=== PATIENT | female | born 1965 | race Caucasian/White ===

== ENCOUNTER 2019-12-04 15:32 | Inpatient (IN) | payer MEDICARE, MEDICAID, SELFPAY ==
--- NOTE | ~2019-12-04 | US_ITS ---
EXAMINATION: US right upper quadrant EXAM DATE: 12/04/2019 16:35 INDICATION: Right upper quadrant pain. TECHNIQUE: Multiple grayscale and Doppler images of the abdomen right upper quadrant were obtained (b y a technologist who performed the scan) and subsequently reviewed. Correlation is made to CT abdomen pelvis 10/29/2019. FINDINGS: The pancreatic head and body are normal in appearance. The pancreatic tail is not visualized. The l iver has normal echogenicity and contour. There are no focal liver lesions identified. There is no evidence of intrahepatic biliary duct dilation. Portal venous flow was seen in the hepatopedal, nor mal direction and has normal Doppler waveform. No right-sided hydronephrosis. Common bile duct measures 5 mm, which is normal. The gallbladder wall is normal in thickness, with on ly mild amount of distention. No sonographic evidence of pericholecystic fluid. There is a gallston e identified and some layering gallbladder debris. Technologist reports tenderness overlying the gal lbladder. IMPRESSION: Cholelithiasis. No gallbladder wall thickening, pericholecystic fluid or biliary dilation , but Sarah sign demonstrated. If biliary dysfunction suspected, consider follow-up HIDA scan. Reviewed, dictated and finalized at location A. NTIFIC SOFTWARE ENGINEER IMPRESSION: Cholelithiasis. No gallbladder wall thickening, pericholecystic flu id or biliary dilation, but Sarah sign demonstrated. If biliary dysfunction alonzo spected, consider follow-up HIDA scan.
[2019-12-04 15:34] VITALS: BP 130/97; PULSE 102; RESP 18; TEMP 36.7; O2SAT 100
--- NOTE | 2019-12-04 15:44 | ED.ABDPAIN ---
HPI - Abdominal Pain General Chief Complaint: Abdominal Pain Stated Complaint: Abd pain Time Seen by Provider: 12/04/19 15:41 Source: patient Mode of arrival: ambulatory Limitations: no limitations History of Present Illness HPI narrative: The pt is a 54 y/o female who presents to the ED with c/o epigastric and RUQ ABD pain that began this morning. The pt was seen here on 11/29/19 and was sent home on Cipro. She had an outpatient follow up and is scheduled for a cholecystectomy on 12/11/19. She has been taking Tylenol without relief of sx and states that she only ate a piece of toast this morning. The pt also reports chills, nausea, and diarrhea. She denies vomiting in the ED bed but notes that she has been throwing up on and off for the past month. The pt has a SHx of a bilateral TKR and tubal ligation. She is not sure if she is able to wait until next week's surgery because of her pain. MD elicited complaint: abdominal pain Onset (ago): hour(s) (this morning) Location: epigastric and RUQ Associated symptoms: nausea, diarrhea and chills Related Data Home Medications Medication Instructions Recorded Confirmed lisinopril-hydrochlorothiazide 1 tablet PO DAILY 11/28/19 11/28/19 meloxicam 15 mg PO DAILY 11/28/19 11/28/19 metformin 1,000 mg PO BID 11/28/19 11/28/19 multivitamin 1 tablet PO DAILY 11/28/19 11/28/19 Allergies Allergy/AdvReac Type Severity Reaction Status Date / Time shellfish derived Allergy Intermediate Hives / Verified 11/28/19 10:12 Red Face pineapple Allergy Unknown Hives / Verified 11/28/19 10:12 Red Face Sulfa (Sulfonamide Allergy Unknown Hives Verified 11/28/19 10:12 Antibiotics) ketorolac Allergy Swelling Verified 11/28/19 10:12 strawberry Allergy Hives Verified 11/28/19 10:12 Review of Systems Review of Systems: Narrative: CONSTITUTIONAL: Reports chills. GASTROINTESTINAL: Reports epigastric and RUQ abdominal pain, nausea, and diarrhea. Denies vomiting. All systems reviewed & are unremarkable except as noted in HPI and below PMFSH Past Medical History Medical History Arthritis Diabetes DJD of shoulder History of hypertension Obesity (BMI 30-39.9) Right shoulder pain Rotator cuff tendonitis Seasonal allergies Surgical History Surgical History H/O arthroscopic knee surgery bilateral H/O wrist surgery lt History of total left knee replacement History of total right knee replacement Family History Family History Father No problems noted. Mother No problems noted. Social History Social History Smoking status: Former smoker Smoking end date: 10/30/02 Alcohol intake: never Exam Narrative: Exam Narrative: GENERAL: Well-appearing, well-nourished, and in no acute distress. HEAD: Normocephalic, atraumatic. EYES: PERRLA and EOMI. ENT: Nares clear, no rhinorrhea or epistaxis. Mucous membranes moist. NECK: Supple. CHEST: Clear to auscultation. No respiratory distress. HEART: Regular rate and rhythm. No murmur heard. Normal peripheral pulses. ABDOMEN: Soft, epigastric and RUQ tenderness, nondistended, normal active bowel sounds. EXTREMITIES: Normal range of motion. No edema. SKIN: Warm, dry, no rash. NEURO: No focal deficits. Alert and oriented X3. Course Course Emergency Course: Patient presented to the emergency department for evaluation of continued abdominal pain. Patient has a history of cholecystitis, scheduled for outpatient cholecystectomy next week. Patient is having pain that is currently not attributed to eating, states that she has been trying to adhere to a low-fat diet. The time of assessment, patient has epigastric and right upper quadrant pain without guarding. Nonrigid. IV access obtained and labs are
[2019-12-04 15:46] LABS: Basophils Absolute Auto 0.1 K/mm3 (0.0-0.1); Basophils Percent Auto 0.5 % (0.2-1.2); Eosinophils Absolute Auto 0.4 K/mm3 (0-0.3); Eosinophils Percent Auto 3.4 % (0-4.4); Immature Granulocyte Absolute 0.04 K/mm3 (0.00-0.031); Immature Granulocyte Percent A 0.4 % (0-0.5); Lymphocytes Absolute Auto 2.97 K/mm3 (0.9-3.2); Mean Corpuscular HGB Conc 34.1 g/dl (32-36); Mean Corpuscular Hemoglobin 31.4 pg (26-34); Mean Corpuscular Volume 92.1 fl (80-100); Mean Platelet Volume 9.6 fl (7.4-10.4); Monocytes Absolute Auto 1.2 K/mm3 (0.1-0.6); Monocytes Percent Auto 10.7 % (2.6-8.5); Neutrophils Absolute Auto 6.7 K/mm3 (1.3-6.7); Platelet Count Result 270 k/mm3 (150-375); Red Blood Count 4.78 M/mm3 (4.2-5.4); Red Cell Distribution Width 13.4 % (11.5-14.5); White Blood Count 11.4 K/mm3 (4.5-10.0)
[2019-12-04 15:58] LABS: Alanine Aminotransferase 19 U/L (4-35); Albumin Level 4.6 g/dL (3.5-5.1); Alkaline Phosphatase 91 U/L (38-126); Aspartate Amino Transferase 21 U/L (14-36); Bilirubin,Total 0.4 mg/dL (0.2-1.3); Blood Urea Nitrogen 15 mg/dL (7-17); Calcium 9.9 mg/dL (8.4-10.2); Carbon Dioxide 22 mmol/L (22-30); Chloride 99 mmol/L (98-107); Estimated CRCL calculation 103 ml/min; Estimated Glomerular Filt Rate > 60; Glucose 91 mg/dL (65-105); Lipase 1027 U/L (23-300); Potassium 3.8 mmol/L (3.4-5.0); Sodium 134 mmol/L (137-145)
[2019-12-04] MEDS: ONDANSETRON INJ 4 MG/2 ML VIAL IV PUSH (17:03)
[2019-12-04] MEDS: MORPHINE SULFATE 4 MG/ML INJ IV PUSH ×2 (17:03→21:31)
[2019-12-04] MEDS: SODIUM CHLORIDE 0.9% IV 1,000 ML 999 ML IV CONT (17:03)
[2019-12-04 17:06] VITALS: BP 148/93; PULSE 92; RESP 18; O2SAT 96
[2019-12-04 17:08] LABS: Add Urine Microscopic? YES; Appearance Urine Clear (Clear); Bilirubin Urine Negative (Negative); Blood Urine 2+ (Negative); Color Urine Yellow (Yellow); Glucose Urine UA Negative (Negative); Ketones Urine Trace mg/dL (Negative); Leukocyte Esterase Ur 1+ LEU/UL (Negative); Mucus Urine Rare /lpf; Nitrate Urine Negative (Negative); Protein Urine Negative (Negative); Specific Grav Ur 1.018 (1.001-1.035); Squamous Epithelial Cell Urine Many /hpf (Few); Urobilinogen Urine Negative mg/dL (<2.0)
[2019-12-04 18:30] VITALS: BP 139/74; PULSE 87; RESP 18; TEMP 36.7; O2SAT 100; BMI 39.6
--- NOTE | 2019-12-04 18:35 | ADMGEN ---
This patient, Yue Valdovinos, was admitted to 2 Medical Room 242-. Patient/family oriented to hospital policies and general routines including ID bracelet, bed and alarms, visiting hours, pain management, procedures, bathroom and other care routines, personal items, smoking policy, room service/diet, and visiting hours. Valuables list has been completed. Information on how to activate the Rapid Response Team has been discussed. Patient/Family are encouraged to report perceived risks to care and to ask questions if they do not understand what they are told or what they should do.
[2019-12-04] MEDS: LACTATED RINGERS 1,000 ML 125 ML IV CONT (18:37)
[2019-12-04 21:51] VITALS: BP 94/57; PULSE 80; RESP 16; TEMP 36.1; O2SAT 99
--- NOTE | 2019-12-04 23:20 | PM.IMHP ---
H&P: HPI History of Present Illness Chief complaint: Pancreatitis Narrative: Yue Valdovinos is a 54 year old female who has a history of cholelithiasis. The patient stated she was diagnosed with gallstones back in September last year. Patient recently got into his surgeon and has her surgery scheduled for 12/11/2019. The patient stated that she has been on a bland diet and hardly eating anything. She stated that she was having some gallbladder attacks but they would last for short period time and then go away. However her pain did not go away today. She has been eating toast and oatmeal. She took Tylenol without relief of epigastric discomfort. She feels bloated and has been vomiting. She has been throwing up on and off for the last month.Lipase was noted to be 1027. Gallbladder ultrasound shows cholelithiasis. Date of service 12/04/2019. For the discomfort and Zofran is started on IV fluids. Review of Systems Review of Systems: Narrative: She complains of having headache and feeling hungry. All systems reviewed & are unremarkable except as noted in HPI and below Constitutional: Constitutional: Reports as per HPI and Reports no additional constitutional complaints Eyes: Eyes: Reports as per HPI and Reports no additional eye complaints ENT: Reports system reviewed and no additional complaints, except as documented and Reports Normal hearing present Cardiovascular: Cardiovascular: Reports no additional cardiovascular complaints Respiratory: Respiratory: Reports no additional respiratory complaints and Reports no additional respiratory complaints Gastrointestinal: Gastrointestinal: Reports as per HPI, Reports no additional gastrointestinal complaints, Reports bloating, Reports GI cramping, Reports dyspepsia and Reports heartburn Comments: Epigastric discomfort. Bloating cramping nausea vomiting Musculoskeletal: Musculoskeletal: Reports no additional musculoskeletal complaints Integumentary/Breasts: Skin/Breast: Reports system reviewed and no additional complaints, except as docu and Reports as per HPI Neurologic: Reports system reviewed and no additional complaints, except as documented, Reports as per HPI and Reports Normal hearing present Psychiatric: Psychiatric: Reports no additional psychiatric complaints and Reports as per HPI Endocrine: Endocrine: Reports no additional endocrine complaints Hematologic/Lymphatic: Hematologic/Lymphatic: Reports no additional hematologic/lymphatic complaints Allergic/Immunologic: Allergic/Immunologic: Reports no additional allergic/immunologic complaints [facility] Past Medical History Medical History (Updated 12/04/19 @ 17:22 by Betty Valles MD) Arthritis Diabetes DJD of shoulder History of hypertension Obesity (BMI 30-39.9) Right shoulder pain Rotator cuff tendonitis Seasonal allergies Surgical History Surgical History (Updated 12/04/19 @ 23:26 by Elizabeth Sepulveda NP) H/O arthroscopic knee surgery bilateral H/O wrist surgery lt at least 13 surgeries that left wrist and is now fused History of total left knee replacement History of total right knee replacement Family History Family History (Updated 12/04/19 @ 23:26 by Elizabeth Sepulveda NP) Father Alcohol abuse Alcoholic Cerebrovascular accident Mother Depression Social History Social History (Updated 12/04/19 @ 23:27 by Elizabeth Sepulveda NP) Social History: She is and has 3 children. She is now on disability. 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 She denies any alcohol or illicit drugs. Patient quit smoking 2009 but then started back up in 2018. Then she quit but now she occasionally smokes a cigarette. She is disabled. She is a full code. No POA Smoking status: Former smoker Smoking end date: 10/30/02 Alcohol intake: never Substance use: never Living arrangements: alone Gender identity (if verbalized by the patient): Female Spiritual care concerns: No Agre
[2019-12-05] MEDS: LACTATED RINGERS 1,000 ML 125 ML IV CONT ×2 (05:58→14:57)
[2019-12-05] MEDS: MORPHINE SULFATE 4 MG/ML INJ IV PUSH (06:03)
[2019-12-05 06:20] VITALS: BP 139/59; PULSE 80; RESP 16; TEMP 35.9; O2SAT 97
[2019-12-05 07:53] LABS: Alanine Aminotransferase 81 U/L (4-35); Albumin Level 3.7 g/dL (3.5-5.1); Alkaline Phosphatase 68 U/L (38-126); Aspartate Amino Transferase 100 U/L (14-36); Bilirubin,Total 0.9 mg/dL (0.2-1.3); Blood Urea Nitrogen 13 mg/dL (7-17); Calcium 8.9 mg/dL (8.4-10.2); Carbon Dioxide 23 mmol/L (22-30); Chloride 106 mmol/L (98-107); Cholesterol 143 mg/dL (0-200); Estimated CRCL calculation 121 ml/min; Estimated Glomerular Filt Rate > 60; Glucose 89 mg/dL (65-105); HDL Direct 35 mg/dL; Lipase 56 U/L (23-300); Magnesium 1.9 mg/dL (1.6-2.3); Potassium 4.2 mmol/L (3.4-5.0); Sodium 138 mmol/L (137-145); Triglycerides 155 mg/dL (<150)
[2019-12-05 08:04] LABS: LDL Cholesterol Direct 94 mg/dL
--- NOTE | 2019-12-05 09:54 | PM.CNGS ---
Assessment and Plan Assessment and plan (1) Acute pancreatitis: Qualifiers: Acute pancreatitis complication: unspecified Pancreatitis type: biliary Qualified Code(s): K85.10 - Biliary acute pancreatitis without necrosis or infection Code(s): K85.90 - Acute pancreatitis without necrosis or infection, unspecified Status: Acute Assessment and Plan: Most likely biliary cause for the acute pancreatitis. Continue IV fluids, analgesics, and antiemetics as needed. The patient seems to have clinically improved significantly already this morning. Her lipase is also down to normal this morning. Will start her on a clear liquid diet. (2) Chronic cholecystitis with calculus: Code(s): K80.10 - Calculus of gallbladder with chronic cholecystitis without obstruction Status: Acute Assessment and Plan: Imaging reviewed and discussed with the patient. She has chronic cholecystitis with cholelithiasis. She now has an episode of also acute biliary pancreatitis. She was already scheduled to have an elective laparoscopic cholecystectomy, possible open, by Dr. Smith on 12/11/19. She will need to be treated for the acute pancreatitis prior to deciding on proceeding with a laparoscopic cholecystectomy, although this does not change the fact that she needs to have the surgery. The procedure has been discussed with her in detail as an outpatient. She has no further questions today. Further plan on timing of surgery will be forthcoming following Dr. Smith's evaluation and how she responds to current treatment. (3) History of hypertension: Code(s): Z86.79 - Personal history of other diseases of the circulatory system Status: Acute (4) Obesity (BMI 30-39.9): Code(s): E66.9 - Obesity, unspecified Status: Acute Additional Plan Discussed the patient's case and plan of care with Dr. Smith. History of Present Illness Consult details Consult date: 12/05/19 Reason for consult: other (Known chronic cholecystitis with cholelithiasis with acute pancreatitis) Requesting physician: Betty Valles MD Narrative: This is a 54-year-old female with a history of hypertension and known chronic cholecystitis with cholelithiasis, who presented to the emergency department yesterday with complaints of epigastric and right upper quadrant abdominal pain. The patient reports having a history of right upper quadrant abdominal pain intermittently after fatty food intake. She reports the pain is typically mild and will resolve spontaneously with time. She then had an outpatient office visit with Dr. Smith on 11/14/19 for chronic cholecystitis with cholelithiasis and surgery has been scheduled for 12/11/2019. She reports eating a bland low-fat diet following her outpatient consultation and this had improved her symptoms. She states she had been having diarrhea for months and that had improved as well. The patient states that yesterday at around 9:00 a.m. she developed an acute onset of epigastric and right upper quadrant abdominal pain. This was a different type of pain than she had felt in the past, stating that it was sharper, more intense, and was continuous. She reports also having associated nausea, but no vomiting. She had tried to take Tylenol for the pain, which did not improve her symptoms. With the pain not resolving, she decided to present to the emergency department for further evaluation. A right upper quadrant abdominal ultrasound was performed and showed cholelithiasis without any gallbladder distention, wall thickening, or pericholecystic fluid. Labs revealed white blood cell count of 11,400, lipase 1027, and LFTs normal. The patient was admitted to the hospitalist service and started on IV fluids, analgesics, and antiemetics. Our service was then consulted for surgical evaluation of the cholelithiasis with chronic cholecystitis and now acute pancreatitis. The patient is now being seen on the medical floor. She repor
[2019-12-05 14:00] VITALS: BP 133/67; PULSE 78; RESP 16; TEMP 36.2; O2SAT 98
--- NOTE | 2019-12-05 14:18 | PM.IMPN ---
Progress Note: A&P Assessment and Plan (1) Acute pancreatitis: Qualifiers: Acute pancreatitis complication: unspecified Pancreatitis type: biliary Qualified Code(s): K85.10 - Biliary acute pancreatitis without necrosis or infection Code(s): K85.90 - Acute pancreatitis without necrosis or infection, unspecified Status: Acute Assessment and Plan: Likely due to gallstones Rapid resolution Low risk approach would be cholecystectomy prior to discharge (2) Chronic cholecystitis with calculus: Code(s): K80.10 - Calculus of gallbladder with chronic cholecystitis without obstruction Status: Acute Assessment and Plan: Await cholecystectomy (3) History of hypertension: Code(s): Z86.79 - Personal history of other diseases of the circulatory system Status: Acute Assessment and Plan: monitor Subjective Date/time seen: 12/05/19 14:18 Interval history: Admitted 2/ with acute pancreatitis. Severe epigastric pain. No pain today. No n/v. No bleeding. No cp or sob. No gi/gu c/o. Review of Systems Review of Systems: All systems reviewed & are unremarkable except as noted in HPI and below Exam Narrative: Exam Narrative: HEENT: EOMI, PERRL, pharyngeal mucosa pink and intact NECK: No JVD CHEST: Clear to auscultation. Normal effort. HEART: NL S1/S2, regular, no murmur ABDOMEN: BS+, soft, nontender, no mass, no bruits EXTREMITIES: No cyanosis, edema, or clubbing NEUROLOGIC: CN intact and symmetric to inspection. MUSCULOSKELETAL: Tone and strength symmetric. PSYCH: Alert. Oriented to person, place, and time. Objective Data Vital Signs Vital Signs: Vital Signs - 24 hr 12/04/19 15:34 12/04/19 17:06 12/04/19 18:30 Temperature 98.1 F 98.1 F Pulse Rate 102 H 92 87 Respiratory Rate 18 18 18 Blood Pressure 130/97 H 148/93 H 139/74 Pulse Oximetry 100 96 100 12/04/19 21:51 12/05/19 06:20 Temperature 96.9 F L 96.7 F L Pulse Rate 80 80 Respiratory Rate 16 16 Blood Pressure 94/57 L 139/59 L Pulse Oximetry 99 97 Intake/Output Intake/Output: Intake & Output 12/02/19 12/03/19 12/04/19 12/05/19 23:59 23:59 23:59 23:59 Intake Total 1000 1100 Output Total 800 Balance 1000 300 Meds/Results Medications: Active Medications Generic Name Dose Route Start Last Admin Trade Name Gabi PRN Reason Stop Dose Admin Acetaminophen 650 mg in 65 mls @ 260 mls/hr 12/04/19 17:22 12/05/19 09:37 Ofirmev 650 Mg Ivpb IVPB 12/05/19 17:23 260 mls/hr Q6H PRN Administration Mild Pain (1-3) or Fever Lactated Ringer's 1,000 mls @ 125 mls/hr 12/04/19 17:25 12/05/19 05:58 Lr - Lactated Ringers Iv IV CONT 125 mls/hr .Q8H WILL Administration Morphine Sulfate 4 mg 12/04/19 17:22 12/05/19 06:03 Morphine Sulfate Inj IV PUSH 4 mg Q2H PRN Administration Pain Rated 7-10 Ondansetron HCl 4 mg 12/04/19 17:22 Zofran Inj IV PUSH Q4H PRN Nausea Radiology Results: ITS Impressions Upper Quadrant Ultrasound 12/04/19 16:36 IMPRESSION: Cholelithiasis. No gallbladder wall thickening, pericholecystic fluid or biliary dilation, but Sarah sign demonstrated. If biliary dysfunction suspected, consider follow-up HIDA scan. Labs Labs: Laboratory Results - last 24 hr 12/04/19 12/04/19 12/04/19 15:38 15:38 16:47 WBC 11.4 H RBC 4.78 Hgb 15.0 Hct 44.0 MCV 92.1 MCH 31.4 MCHC 34.1 RDW 13.4 Plt Count 270 MPV 9.6 Immature Gran % (Auto) 0.4 Neut % (Auto) 59.0 Lymph % (Auto) 26.0 Isabela % (Auto) 10.7 H Eos % (Auto) 3.4 Baso % (Auto) 0.5 Lymph # (Auto) 2.97 Isabela # (Auto) 1.2 H Eos # (Auto) 0.4 H Baso # (Auto) 0.1 Abs Immat Gran (auto) 0.04 H Absolute Neuts (auto) 6.7 Absolute Nucleated RBC 0.0 Nucleated RBC % 0.0 Sodium 134 L Potassium 3.8 Chloride 99 Carbon Dioxide 22 BUN 15 D Creatinine 0.80 Estim Creat Sarah
[2019-12-05 15:07] LABS: Basophils Percent Auto 0.4 % (0.2-1.2); Eosinophils Absolute Auto 0.3 K/mm3 (0-0.3); Eosinophils Percent Auto 3.9 % (0-4.4); Hematocrit 41.3 % (37.0-47.0); Hemoglobin 13.5 g/dL (12.0-15.0); Immature Granulocyte Absolute 0.01 K/mm3 (0.00-0.031); Immature Granulocyte Percent A 0.1 % (0-0.5); Lymphocytes Absolute Auto 2.16 K/mm3 (0.9-3.2); Lymphocytes Percent Auto 28.1 % (18.3-44.2); Mean Corpuscular HGB Conc 32.7 g/dl (32-36); Mean Corpuscular Hemoglobin 31.5 pg (26-34); Mean Corpuscular Volume 96.5 fl (80-100); Monocytes Absolute Auto 0.9 K/mm3 (0.1-0.6); Monocytes Percent Auto 11.3 % (2.6-8.5); Neutrophils Absolute Auto 4.3 K/mm3 (1.3-6.7); Neutrophils Percent Auto 56.2 % (45.5-73.1); Platelet Count Result 229 k/mm3 (150-375); Red Blood Count 4.28 M/mm3 (4.2-5.4); Red Cell Distribution Width 13.9 % (11.5-14.5); White Blood Count 7.7 K/mm3 (4.5-10.0)
--- NOTE | 2019-12-05 17:21 | PM.PNGS ---
Progress Note: A&P Assessment and Plan (1) Chronic cholecystitis with calculus: Code(s): K80.10 - Calculus of gallbladder with chronic cholecystitis without obstruction Status: Acute Assessment and Plan: Ultrasound surprisingly unremarkable for signs of acute cholecystitis or biliary ductal dilatation. However in the setting, it seems very likely she has a common bile duct stone that has probably passed. (2) Biliary acute pancreatitis: Code(s): K85.10 - Biliary acute pancreatitis without necrosis or infection Status: Acute Assessment and Plan: Still having epigastric pain although her lipase has decreased to the normal range. Will start clear liquids and see how she does. Continue analgesics. Subjective Subjective Date/Time Seen: 12/05/19 17:21 Patient is a 54-year-old woman who had originally come to the emergency room with right upper quadrant abdominal pain, tenderness and evidence of chronic cholecystitis. She improved with analgesics and was started on antibiotics and a low-fat diet. I saw her in the office. She has been scheduled for laparoscopic cholecystectomy to be done on December 11, 2019. However, she started having severe abdominal pain yesterday morning. Evaluation in the emergency room showed gallstones but no evidence of acute cholecystitis on ultrasound. Her serum lipase was quite elevated at over a 1000. This has improved now and is in the normal range. Her white blood cell count also decreased to normal. She still is having some epigastric abdominal pain. She is seen today in consultation regarding her abdominal pain and apparent diagnosis of biliary pancreatitis. Review of Systems Review of Systems: All systems reviewed & are unremarkable except as noted in HPI and below (HPI) Exam GI: Inspection: normal to inspection and non-distended GI Palp: Yes Soft to palpation, Yes Tenderness to palpation present (GI) (Epigastric tenderness), No Guarding due to palpation present (GI) and No Hernia present Auscultation: Hypoactive bowel sounds present Objective Data Vital Signs Vital Signs: Vital Signs - 24 hr 12/04/19 18:30 12/04/19 21:51 12/05/19 06:20 Temperature 36.7 C 36.1 C L 35.9 C L Pulse Rate 87 80 80 Respiratory Rate 18 16 16 Blood Pressure 139/74 94/57 L 139/59 L Pulse Oximetry 100 99 97 12/05/19 14:00 Temperature 36.2 C L Pulse Rate 78 Respiratory Rate 16 Blood Pressure 133/67 Pulse Oximetry 98 Intake/Output Intake/Output: Intake & Output 12/02/19 12/03/19 12/04/19 12/05/19 23:59 23:59 23:59 23:59 Intake Total 1000 2165 Output Total 800 Balance 1000 1365 Meds/Results Medications: Active Medications Generic Name Dose Route Start Last Admin Trade Name Freq PRN Reason Stop Dose Admin Acetaminophen 1,000 mg 12/05/19 17:13 Tylenol Tablet PO Q6H PRN Pain Rated 1-3 or Fever Enoxaparin Sodium 40 mg 12/06/19 09:00 Lovenox SUB-Q DAILY WILL Lactated Ringer's 1,000 mls @ 80 mls/hr 12/04/19 17:25 12/05/19 14:57 Lr - Lactated Ringers Iv IV CONT 125 mls/hr .[id number] WILL Administration Morphine Sulfate 2 mg 12/05/19 17:13 Morphine Sulfate Inj IV PUSH Q2H PRN Pain Rated 4-6 Morphine Sulfate 4 mg 12/05/19 17:13 Morphine Sulfate Inj IV PUSH Q2H PRN Pain Rated 7-10 Ondansetron HCl 4 mg 12/04/19 17:22 Zofran Inj IV PUSH Q4H PRN Nausea Radiology Results: ITS Impressions Upper Quadrant Ultrasound 12/04/19 16:36 IMPRESSION: Cholelithiasis. No gallbladder wall thickening, pericholecystic fluid or biliary dilation, but Sarah sign demonstrated. If biliary dysfunction suspected, consider follow-up HIDA scan. Labs Labs: Laboratory Results - last 24 hr 12/05/19 12/05/19 12/05/19 07:32 07:33 14:50 WBC 7.7 RBC 4.28 Hgb 13.5 Hct 41.3 MCV 96.5 MCH 31.5 MCHC 32.7 RDW 13.9 Plt Count 229 MPV 10.0 Immatu
[2019-12-05] MEDS: ACETAMINOPHEN 500 MG TABLET 1000 MG PO (18:08)
[2019-12-05 20:00] VITALS: PULSE 78; RESP 16; O2SAT 98
[2019-12-05 22:00] VITALS: BP 103/63; PULSE 70; RESP 21; TEMP 36.1; O2SAT 100
[2019-12-06] MEDS: LACTATED RINGERS 1,000 ML 80 ML IV CONT (00:04)
[2019-12-06] MEDS: ACETAMINOPHEN 500 MG TABLET 1000 MG PO ×2 (01:01→08:26)
[2019-12-06 06:00] VITALS: BP 122/81; PULSE 85; RESP 20; TEMP 36.2; O2SAT 99
[2019-12-06 06:12] LABS: Hematocrit 41.3 % (37.0-47.0); Hemoglobin 13.5 g/dL (12.0-15.0); Mean Corpuscular HGB Conc 32.7 g/dl (32-36); Mean Corpuscular Volume 94.7 fl (80-100); Mean Platelet Volume 9.9 fl (7.4-10.4); Platelet Count Result 199 k/mm3 (150-375); Red Blood Count 4.36 M/mm3 (4.2-5.4); Red Cell Distribution Width 13.6 % (11.5-14.5)
[2019-12-06 06:24] LABS: Alanine Aminotransferase 80 U/L (4-35); Albumin Level 3.8 g/dL (3.5-5.1); Alkaline Phosphatase 87 U/L (38-126); Aspartate Amino Transferase 43 U/L (14-36); Bilirubin,Total 0.4 mg/dL (0.2-1.3); Blood Urea Nitrogen 9 mg/dL (7-17); Calcium 9.2 mg/dL (8.4-10.2); Carbon Dioxide 25 mmol/L (22-30); Chloride 104 mmol/L (98-107); Estimated CRCL calculation 139 ml/min; Estimated Glomerular Filt Rate > 60; Glucose 94 mg/dL (65-105); Lipase 27 U/L (23-300); Potassium 3.9 mmol/L (3.4-5.0); Sodium 138 mmol/L (137-145)
[2019-12-06 06:53] LABS: Hepatitis B Surface Antigen Negative (Negative)
[2019-12-06 07:11] LABS: Hepatitis C Virus Antibody Negative (Negative)
[2019-12-06] MEDS: ENOXAPARIN 40 MG/0.4 ML SYRINGE SUB-Q (08:21)
--- NOTE | 2019-12-06 09:37 | PM.DS ---
DS: Diagnosis Admitting Diagnosis Admitting Diagnosis: Biliary acute pancreatitis without necrosis or infection Discharge Diagnosis (1) Biliary acute pancreatitis: Code(s): K85.10 - Biliary acute pancreatitis without necrosis or infection Status: Resolved Assessment and Plan: No further abdominal pain. Will advance to low-fat diet and discharge today. She will go home on a low-fat diet and then come to surgery on Monday12/11/2019 as planned for laparoscopic cholecystectomy. I will go ahead with intraoperative cholangiogram at the time of the surgery since she presented with biliary pancreatitis. (2) Chronic cholecystitis with calculus: Code(s): K80.10 - Calculus of gallbladder with chronic cholecystitis without obstruction Status: Chronic Assessment and Plan: Lap choly as outpatient as noted above. Low-fat diet until then. (3) History of hypertension: Code(s): Z86.79 - Personal history of other diseases of the circulatory system Status: Chronic (4) Obesity (BMI 30-39.9): Code(s): E66.9 - Obesity, unspecified Status: Chronic DS: Summary Time Spent with Patient Time attestation: Total time spent providing and/or coordinating discharge services: Exam Const: General: comfortable and no acute distress; No confusion Orientation/consciousness: patient oriented x3 and No confusion Resp: Effort & Inspection: normal respiratory effort Auscultation: clear to auscultation bilaterally Cardio: Rate: regular rate Rhythm: regular rhythm GI: Inspection: non-distended GI Palp: Yes Soft to palpation, No Tenderness to palpation present (GI), No Guarding due to palpation present (GI) and No Rebound tenderness present Auscultation: normal bowel sounds Neuro: General: patient oriented x3, no focal motor deficits and No confusion Extrem: General: no calf tenderness and no edema Psych: Affect: normal affect Insight: Good insight present (Psych) Judgement: Good judgement present (Psych) DS: Data Data Completed and Pending Labs on day of discharge: Labs from last 24 hours 12/06/19 12/06/19 12/06/19 05:38 05:38 05:38 WBC 7.0 RBC 4.36 Hgb 13.5 Hct 41.3 MCV 94.7 MCH 31.0 MCHC 32.7 RDW 13.6 Plt Count 199 MPV 9.9 Immature Gran % (Auto) Neut % (Auto) Lymph % (Auto) [place] % (Auto) Eos % (Auto) Baso % (Auto) Lymph # (Auto) [place] # (Auto) Eos # (Auto) Baso # (Auto) Abs Immat Gran (auto) Absolute Neuts (auto) Absolute Nucleated RBC Nucleated RBC % Sodium 138 Potassium 3.9 Chloride 104 Carbon Dioxide 25 BUN 9 Creatinine 0.60 L Estim Creat Clear Calc 139 Estimated GFR > 60 Glucose 94 Calcium 9.2 Total Bilirubin 0.4 AST 43 H ALT 80 H Alkaline Phosphatase 87 Total Protein 7.0 Albumin 3.8 Lipase 27 Hep Bs Antigen Negative Hepatitis C Ab Screen Negative 12/05/19 14:50 WBC 7.7 RBC 4.28 Hgb 13.5 Hct 41.3 MCV 96.5 MCH 31.5 MCHC 32.7 RDW 13.9 Plt Count 229 MPV 10.0 Immature Gran % (Auto) 0.1 Neut % (Auto) 56.2 Lymph % (Auto) 28.1 [place] % (Auto) 11.3 H Eos % (Auto) 3.9 Baso % (Auto) 0.4 Lymph # (Auto) 2.16 [place] # (Auto) 0.9 H Eos # (Auto) 0.3 Baso # (Auto) 0.0 Abs Immat Gran (auto) 0.01 Absolute Neuts (auto) 4.3 Absolute Nucleated RBC 0.0 Nucleated RBC % 0.0 Sodium Potassium Chloride Carbon Dioxide BUN Creatinine Estim Creat Clear Calc Estimated GFR Glucose Calcium Total Bilirubin AST ALT Alkaline Phosphatase Total Protein Albumin Lipase Hep Bs Antigen Hepatitis C Ab Screen Discharge Plan Discharge Attending physician on discharge: Сергей Smith Consulting providers: Сергей Smith Discharging Clinician: Сергей Smith Anticipated Discharge Date/Time: 12/06/19 09:41 Patient Disposition: Home, Self-Care Activity: as tolerated
--- NOTE | 2019-12-06 13:13 | PM.DS ---
DS: Diagnosis Admitting Diagnosis Admitting Diagnosis: Biliary acute pancreatitis without necrosis or infection Discharge Diagnosis (1) Acute pancreatitis: Qualifiers: Acute pancreatitis complication: unspecified Pancreatitis type: biliary Qualified Code(s): K85.10 - Biliary acute pancreatitis without necrosis or infection Code(s): K85.90 - Acute pancreatitis without necrosis or infection, unspecified Status: Deleted Assessment and Plan: Likely due to gallstones Rapid resolution Keep outpatient appointment for laparoscopic cholecystectomy on December 11 Low-fat diet in the mean time (2) Chronic cholecystitis with calculus: Code(s): K80.10 - Calculus of gallbladder with chronic cholecystitis without obstruction Status: Chronic Assessment and Plan: Await cholecystectomy (3) History of hypertension: Code(s): Z86.79 - Personal history of other diseases of the circulatory system Status: Chronic Assessment and Plan: monitor DS: Summary Time Spent with Patient Time attestation: Total time spent providing and/or coordinating discharge services: 33 minutes Exam Narrative: Exam Narrative: HEENT: EOMI, PERRL, pharyngeal mucosa pink and intact NECK: No JVD CHEST: Clear to auscultation. Normal effort. HEART: NL S1/S2, regular, no murmur ABDOMEN: BS+, soft, nontender, no mass, no bruits EXTREMITIES: No cyanosis, edema, or clubbing NEUROLOGIC: CN intact and symmetric to inspection. MUSCULOSKELETAL: Tone and strength symmetric. PSYCH: Alert. Oriented to person, place, and time. DS: Data Data Completed and Pending Labs on day of discharge: Labs from last 24 hours 12/06/19 12/06/19 12/06/19 05:38 05:38 05:38 WBC 7.0 RBC 4.36 Hgb 13.5 Hct 41.3 MCV 94.7 MCH 31.0 MCHC 32.7 RDW 13.6 Plt Count 199 MPV 9.9 Immature Gran % (Auto) Neut % (Auto) Lymph % (Auto) [place] % (Auto) Eos % (Auto) Baso % (Auto) Lymph # (Auto) [place] # (Auto) Eos # (Auto) Baso # (Auto) Abs Immat Gran (auto) Absolute Neuts (auto) Absolute Nucleated RBC Nucleated RBC % Sodium 138 Potassium 3.9 Chloride 104 Carbon Dioxide 25 BUN 9 Creatinine 0.60 L Estim Creat Clear Calc 139 Estimated GFR > 60 Glucose 94 Calcium 9.2 Total Bilirubin 0.4 AST 43 H ALT 80 H Alkaline Phosphatase 87 Total Protein 7.0 Albumin 3.8 Lipase 27 Hep Bs Antigen Negative Hepatitis C Ab Screen Negative 12/05/19 14:50 WBC 7.7 RBC 4.28 Hgb 13.5 Hct 41.3 MCV 96.5 MCH 31.5 MCHC 32.7 RDW 13.9 Plt Count 229 MPV 10.0 Immature Gran % (Auto) 0.1 Neut % (Auto) 56.2 Lymph % (Auto) 28.1 [place] % (Auto) 11.3 H Eos % (Auto) 3.9 Baso % (Auto) 0.4 Lymph # (Auto) 2.16 [place] # (Auto) 0.9 H Eos # (Auto) 0.3 Baso # (Auto) 0.0 Abs Immat Gran (auto) 0.01 Absolute Neuts (auto) 4.3 Absolute Nucleated RBC 0.0 Nucleated RBC % 0.0 Sodium Potassium Chloride Carbon Dioxide BUN Creatinine Estim Creat Clear Calc Estimated GFR Glucose Calcium Total Bilirubin AST ALT Alkaline Phosphatase Total Protein Albumin Lipase Hep Bs Antigen Hepatitis C Ab Screen Discharge Plan Discharge Attending physician on discharge: Сергей Núñez Consulting providers: Сергей Núñez Discharging Clinician: Сергей Núñez Anticipated Discharge Date/Time: 12/06/19 09:41 Patient Disposition: Home, Self-Care Activity: as tolerated Diet: low fat Discharge Instructions: Maintain low-fat diet. Call or come to emergency room if severe pain recurs. Activity as tolerated. Plan to proceed with laparoscopic cholecystectomy on Monday as planned. Patient Instructions: Antibiotic Form Stand Alone Forms: General Discharge Information Follow-up/Referrals: Сергей Núñez MD [Physician] - Other ( See Dr. núñez for outpatien
== END 2019-12-06 14:50 | disposition home or self-care (01) | DRG 439 ==
LOC: ANHED 17:26 → ANH2MED 17:39
PROVIDERS: Internal Medicine; Nurse Practitioner; Admitting Provider Family Medicine; Emergency Provider Emergency Medicine; PCP Nurse Practitioner Family; Visit Provider Family Medicine
DX: K85.10 Biliary acute pancreatitis without necrosis or infection (principal); K80.10 Calculus of gallbladder with chronic cholecystitis without obstruction; M19.019 Primary osteoarthritis, unspecified shoulder; E66.9 Obesity, unspecified; Z68.39 Body mass index [BMI] 39.0-39.9, adult; Z96.653 Presence of artificial knee joint, bilateral; I10 Essential (primary) hypertension; Z87.891 Personal history of nicotine dependence
CPT/HCPCS: 36415; 76705; 80053; 80061; 81001; 81025; 83690; 83735; 84443; 85025; 85027; 86803; 87086; 87340; 96361; 96365; 96366; 96374; 96375; 96376; 99285; A9270; G0378; J0131; J1650; J2270; J2405; J7030; J7120

== ENCOUNTER 2019-12-11 00:33 | Day surgery (SDC) | payer MEDICARE, MEDICAID, SELFPAY ==
[2019-11-28 10:09] VITALS: BMI 37.1
[2019-12-11] VITALS (10 sets, daily range): BP systolic 128–163; BP diastolic 72–94; PULSE 67–123; RESP 11–19; TEMP 36.3–37.2; O2SAT 96–100
--- NOTE | ~2019-12-11 | XR_ITS ---
EXAMINATION: XR cholangiogram surg 1st inj EXAM DATE: 12/11/2019 11:24 INDICATION: Cholecystectomy. TECHNIQUE: Multiples Cine fluoroscopic images were obtained during injection of the cystic duct duri ng laparoscopic cholecystectomy. Procedure performed by Dr. Сергей Smith MD on 12/11/2019 11:24. The DAP for this procedure was 0.5 mGym2. FINDINGS: The cystic duct has been injected. Dilated common and proper hepatic ducts. There are no i ntraluminal filling defects within or strictures of the common bile duct or opacified hepatic ducts. Forward flow of contrast confirmed into the duodenum. Contrast extravasation is most likely from th e injection site. IMPRESSION: Dilated common, proper hepatic ducts without filling defects. Reviewed, dictated and finalized at location B. CRITICAL CARE
--- NOTE | 2019-12-11 07:42 | ECG_ITS ---
Measurements Intervals [place] Rate: 97 P: 49 [place]: 163 QRS: 25 QRSD: 81 T: 32 QT: 350 QTc: 445 Interpretive Statements SINUS RHYTHM POSSIBLE LEFT ATRIAL ENLARGEMENT BORDERLINE ECG Electronically Signed On 12-11-2019 9:22:25 CORRECTIONAL PROGRAM OFFICER by Jarvis Bedoya D.O.
--- NOTE | 2019-12-11 09:02 | WPDANESEPPF ---
Anes - Initial Pre Proc Eval Procedure: Operation Date: 12/11/19 10:30 Proposed Procedures p Laparoscopic Cholecystectomy With Intraoperative Cholangiograms - Сергей Smith MD Date/Time: 12/11/19 09:02 Surgeon: Сергей Smith MD Pre Op Diagnosis: Chronic cholecystitis with stones Patient Data Age: 54 Gender: F Height: 6 ft Weight: 124.24 kg Allergies Allergy/AdvReac Type Severity Reaction Status Date / Time shellfish derived Allergy Intermediate Hives / Verified 12/04/19 18:18 Red Face pineapple Allergy Unknown Hives / Verified 12/04/19 18:18 Red Face Sulfa (Sulfonamide Allergy Unknown Hives Verified 12/04/19 18:18 Antibiotics) ketorolac Allergy Swelling Verified 12/04/19 18:51 strawberry Allergy Hives Verified 12/04/19 18:18 Home Medications Medication Instructions Recorded Confirmed Type lisinopril-hydrochlorothiazide 1 tablet PO DAILY 11/28/19 12/04/19 History metformin 1,000 mg PO BID 11/28/19 12/04/19 History acetaminophen 1,000 mg PO Q6H PRN #30 tablet 12/06/19 Rx Patient hx anesthesia problems: none Family hx anesthesia problems: none PMFSH Past Medical History Medical History Arthritis History of hypertension Obesity (BMI 30-39.9) Rotator cuff tendonitis Seasonal allergies Surgical History Surgical History H/O arthroscopic knee surgery bilateral H/O wrist surgery lt at least 13 surgeries that left wrist and is now fused History of total left knee replacement History of total right knee replacement History of tubal ligation Family History Family History Father Alcohol abuse Alcoholic Cerebrovascular accident Mother Depression Social History Social History Social History: She is and has 3 children. She is now on disability. 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 She denies any alcohol or illicit drugs. Patient quit smoking 2009 but then started back up in 2018. Then she quit again but now she occasionally smokes a cigarette. She is disabled. She is a full code. No POA Smoking status: Former smoker Smoking end date: 10/30/02 Alcohol intake: never Substance use: never Gender identity (if verbalized by the patient): Female Spiritual care concerns: No Agree to blood products: Yes Anes - Eval Final PreProcedure Day of Procedure 12/11/19 09:02 Patient weight: obese Heart: regular rate and rhythm Lungs: decreased breath sounds Airway: Mallampati scale class II Neurological: alert and oriented Last oral intake: >/= 8 hours ASA classification: III Emergent: no Anesthetic plan: proceed Anesthesia type and monitoring: general ETT and standard monitoring Informed Consent: The patient's anesthetic plan and its attendant risks and benefits were discussed with the patient/family/POA. Questions were solicited and answers provided to the satisfaction of the patient/family/POA.
[2019-12-11] MEDS: LACTATED RINGERS 1,000 ML 30 ML IV CONT ×2 (09:20→11:57)
[2019-12-11 09:26] LABS: Glucose Point of Care 88 (65-105)
[2019-12-11 09:40] LABS: Amylase 104 U/L (30-110)
--- NOTE | 2019-12-11 09:55 | WPDHPUPDATE1 ---
History and Physical Update Update Date/Time: 12/11/19 09:55 History and Physical has been reviewed, including an updated exam of the patient. Due to the patient's recent admission for acute biliary pancreatitis, we will be proceeding with laparoscopic cholecystectomy with intraoperative cholangiogram. There are NO changes in the patient's condition. Risks, benefits, and alternatives have been discussed and questions answered. Patient agrees to proceed with procedure.
[2019-12-11] MEDS: ceFAZolin 3 GM/D5W 100 ML 100 ML IVPB (10:19)
--- NOTE | 2019-12-11 10:19 | PM.PROC ---
Procedure Note - Detailed Date of procedure: 12/11/19 Pre-op diagnosis: Biliary pancreatitis Biliary pancreatitis Post-op diagnosis: same Procedure performed: Laparoscopic cholecystectomy with intraoperative cholangiogram. Description of procedure: The patient was taken to surgery and induced into general anesthesia. The abdomen was prepped and draped. Trocars were placed in the usual fashion using 0.5% Marcaine with epinephrine and applied Medical optical trocars. A 5 millimeter camera was used. The gallbladder was thickened and distended with chronic inflammation. There were numerous adhesions to the gallbladder. I initially tried to decompress the gallbladder with a laparoscopic aspirator. The bile was somewhat purulent and very thick. It would not pass through the laparoscopic aspirator. I enlarged the opening in the gallbladder and placed the suction within it. Even with the suction it was hard for evacuate the very thickened bile within the gallbladder. Eventually the gallbladder was decompressed adequately. The cholecystotomy was closed with a Vicryl endo-loop. We then took down the numerous adhesions to the gallbladder. These were taken down sharply and some cautery was used. The infundibulum of the gallbladder was exposed. There was an extremely large stone in the area of the infundibulum of the gallbladder. Grasping around the gallbladder distal to the stone, the gallbladder was retracted anterosuperiorly. We exposed the cholecystohepatic triangle and dissected out the cystic duct and cystic artery.The gallbladder was dissected off the liver at its lower 3rd. Critical view was achieved. The cystic artery was securely clipped and divided. Cystic duct was dissected through most of its length. The cystic duct was clipped at the distal gallbladder. A small incision was made in the upper cystic duct with cystic duct scissors. The cholangiogram catheter was passed into the cystic duct. We then brought the C-arm fluoroscopy into the field. Intraoperative cholangiograms were done with C-arm fluoroscopy. This showed a normal cholangiogram with no evidence of common bile duct filling defects. The extrahepatic biliary system was dilated but there was no evidence of stones. There was prompt duodenal filling and no evidence of common bile duct injury. The cholangiogram catheter was removed from the cystic duct. The cystic duct was then securely clipped and divided. The gallbladder was then dissected free of its peritoneal attachments to the liver. Once completely freed, it was placed in an Endo-Catch bag and retrieved through the 10 11 epigastric trocar. With the very large stone in the gallbladder and the very thickened gallbladder wall, I had to enlarge the epigastric trocar site so that the gallbladder could be extricated here. Once it was removed, the epigastric trocar was then replaced. A towel clip was also used to occlude the skin and subcutaneous around the trocar so we could reinsufflated the abdomen. We reviewed the right upper quadrant and gallbladder fossa. It was irrigated and suctioned repeatedly. Cautery was used for hemostasis. Eventually, all looked good with no evidence of bleeding or bile leakage. We then evacuated CO2 and removed the trocar sleeves. The fascia at the epigastric trocar site was closed with running 0 Vicryl suture. The subcutaneous was closed with interrupted 3 0 Vicryl suture. All skin wounds were closed with subcuticular 4 O Monocryl skin suture. The wounds were dressed with Exofin surgical adhesive. The patient transferred to recovery in good condition. Sponge and needle counts were correct x2. Anesthesia: GETA and local (0.5% Marcaine with epinephrine) Surgeon: Сергей Smith MD Flame Brazing Machine Operator: Fidel YOST Estimated blood loss (mL): 5 Drains: No Packing: No Pathology: yes (Gallbladder) Complications: None Condition: stable Disposition: PACU Findings: Severe chronic infla
[2019-12-11] MEDS: BUPIVACAINE/EPINEPHRINE 0.5% 30 ML VIAL INFILTRATE (11:04)
[2019-12-11] MEDS: ONDANSETRON INJ 4 MG/2 ML VIAL IV PUSH (12:19)
[2019-12-11] MEDS: SCOPOLAMINE 1.5 MG PATCH TRANSDERM (12:37)
--- NOTE | 2019-12-11 12:46 | SUR.PHASEI ---
1245: Report given to CRISTHIAN Yoo.
== END 2019-12-11 15:00 | disposition home or self-care (01) ==
PROVIDERS: PCP Nurse Practitioner Family; Visit Provider Surgery
PROC: 0FT44ZZ Resection of Gallbladder, Percutaneous Endoscopic Approach (ICD-10-PCS; CPT 47562; principal; 2019-12-11 10:30)
DX: K80.10 Calculus of gallbladder with chronic cholecystitis without obstruction (principal); K85.10 Biliary acute pancreatitis without necrosis or infection; I10 Essential (primary) hypertension; Z72.0 Tobacco use; E66.9 Obesity, unspecified; Z68.38 Body mass index [BMI] 38.0-38.9, adult
CPT/HCPCS: 47563; 36415; 74300; 82150; 86850; 86900; 86901; 88304; 93005; A9270; C1713; J0131; J0690; J1100; J1200; J2250; J2405; J2704; J3010; J7030; J7120; Q9966

== ENCOUNTER 2023-01-17 17:11 | Emergency (ER) | payer OTHER, SELFPAY ==
--- NOTE | ~2023-01-17 | XR_ITS ---
Left foot Technique: AP and lateral views were obtained. Clinical History: Infection, multiple wounds Findings: No acute fracture clearly identified. There is apparent inferior dislocation of the cuboid with respect to the fourth and fifth metatarsals on the lateral view. There is probable advanced dege nerative change at the naviculocuneiform articulations. Plantar calcaneal spur present. There is diff use soft tissue swelling throughout the foot with extensive soft tissue gas, especially over the dors um of the foot, but there is additional gas at the plantar aspect of the foot, and extending along th e posterior margin of the visualized tibia at the ankle up to level of the mid distal calf. Soft tiss ue ulcer noted the plantar aspect of the midfoot. Impression: Extensive soft tissue swelling and soft tissue gas, as detailed above, suspicious for extensive soft tissue gas forming infection. Soft tissue gas is noted extending up to the level of the mid to distal calf, as well as extensively present in the dorsal aspect of the foot. Inferior dislocation of the cuboid at the cuboid metatarsal articulations. Additional degenerative ch pamela and relative malalignment of the midfoot. Findings suggest underlying Charcot foot. Reviewed, dictated and finalized at location M. Impression: Extensive soft tissue swelling and soft tissue gas, as detailed above, suspicio us for extensive soft tissue gas forming infection. Soft tissue gas is noted ex tending up to the level of the mid to distal calf, as well as extensively prese nt in the dorsal aspect of the foot. Inferior dislocation of the cuboid at the cuboid metatarsal articulations. Fritz tional degenerative change and relative malalignment of the midfoot. Findings s uggest underlying Charcot foot.
--- NOTE | ~2023-01-17 | XR_ITS ---
AP and lateral views of the left tibia/fibula Clinical History: Infection, multiple wounds Findings: No acute fracture or dislocation is seen. Osseous alignment is anatomic. Left knee arthropl asty hardware in place. There is extensive subcutaneous soft tissue edema. There are scattered small areas of soft tissue gas extending up to the level of the midcalf.. Impression: Extensive subcutaneous soft tissue edema with scattered small areas of soft tissue gas extending up t o the level of the midcalf. Findings are compatible with soft tissue gas forming infection. For findings in the foot, please refer to separately reported, dedicated foot radiographic series. Reviewed, dictated and finalized at [facility]. Impression: Extensive subcutaneous soft tissue edema with scattered small areas of soft tis talat gas extending up to the level of the midcalf. Findings are compatible with soft tissue gas forming infection. For findings in the foot, please refer to separately reported, dedicated foot r adiographic series.
--- NOTE | ~2023-01-17 | XR_ITS ---
Portable chest x-ray Comparison: None Clinical History: Line placement Findings: Right IJ line is present, tip likely in the right atrium. Questionable minimal bibasilar p ulmonary edema. No pneumothorax. Cardiomediastinal silhouette is stable. Bones and soft tissues are unremarkable. Impression: Support line in place, as above. No pneumothorax. Possible minimal bibasilar pulmonary edema. Reviewed, dictated and finalized at location . Impression: Support line in place, as above. No pneumothorax. Possible minimal bibasilar pulmonary edema.
[2023-01-17 17:35] VITALS: PULSE 110; RESP 18; TEMP 36.9; O2SAT 99
[2023-01-17 19:53] VITALS: BP 116/88; PULSE 97; RESP 18; O2SAT 98
[2023-01-17 21:29] VITALS: BP 129/102; PULSE 97; RESP 20; TEMP 36.3; O2SAT 97
--- NOTE | 2023-01-17 21:54 | ECG_ITS ---
Measurements Intervals [place] Rate: 103 P: 58 [place]: 167 QRS: 45 QRSD: 90 T: 43 QT: 349 QTc: 458 Interpretive Statements SINUS TACHYCARDIA POSSIBLE LEFT ATRIAL ENLARGEMENT BORDERLINE ECG COMPARED TO ECG 12/11/2019 09:10:34 SINUS TACHYCARDIA NOW PRESENT Electronically Signed On 01-18-2023 6:41:47 CDT by Jarvis Bedoya D.O.
--- NOTE | 2023-01-17 21:57 | ED.GENADULT ---
HPI - General Adult General Chief complaint: Weakness <SADE Valerio Last Filed: 01/18/23 03:41> Stated complaint: weakness <SADE Valerio Last Filed: 01/18/23 03:41> Time Seen by Provider: 01/17/23 21:41 <Fidel Medina PA-C - Last Filed: 01/18/23 03:41> Source: patient <SADE Valerio Last Filed: 01/18/23 03:41> Mode of arrival: EMS <SADE Valerio Last Filed: 01/18/23 03:41> Limitations: no limitations <SADE Valerio Last Filed: 01/18/23 03:41> History of Present Illness HPI narrative: This is a 57-year-old female with PMH of hypertension, obesity, pancreatitis who presents to the ED via EMS for chief complaint of weakness and left foot pain. She states this for started 2 weeks ago and she called her primary care who prescribed her an antibiotic for the foot. She took the antibiotic but did not have much relief. She states that the pain, swelling, weakness in the left foot has significantly increased in the past 2 to 3 days. States she has been unable to get up out of her chair at home. Her daughter normally checks on her who lives next door, but has not seen her in the past 2 days. She does note some cough. Endorses extreme fatigue. Denies any fevers at home, chills, headache, LOC, chest pain, shortness of breath. <SADE Valerio Last Filed: 01/18/23 03:41> Related Data Home medications: Home Medications Medication Instructions Recorded Confirmed lisinopril 20 1 tablet PO DAILY 11/28/19 04/15/21 mg-hydrochlorothiazide 25 mg tablet metformin 1,000 mg 24 hr 1,000 mg PO BID 11/28/19 04/15/21 tablet,extended release acetaminophen 500 mg tablet 1,000 mg PO Q6H PRN PAIN 12/11/19 04/15/21 <SADE Valerio Last Filed: 01/18/23 03:41> Allergies/adverse reactions: Allergies Allergy/AdvReac Type Severity Reaction Status Date / Time shellfish derived Allergy Intermediate Hives / Verified 04/15/21 09:49 Red Face pineapple Allergy Unknown Hives / Verified 04/15/21 09:49 Red Face Sulfa (Sulfonamide Allergy Unknown Hives Verified 04/15/21 09:49 Antibiotics) ketorolac Allergy Swelling Verified 04/15/21 09:49 strawberry Allergy Hives Verified 04/15/21 09:49 <Fidel Medina PA-C - Last Filed: 01/18/23 03:41> Review of Systems Review of Systems: CONSTITUTIONAL: Denies fever, chills, or sweats. Endorses fatigue EYES: Denies visual changes, redness, or discharge. ENT: Denies rhinorrhea, congestion, sore throat, or otalgia. CARDIOVASCULAR: Denies chest pain, palpitations, or edema. RESPIRATORY: Endorses cough cough. Denies dyspnea. GASTROINTESTINAL: Denies abdominal pain, nausea, vomiting, or diarrhea. GENITOURINARY: Denies dysuria or hematuria. SKIN: Endorses blisters and itching. Redness of the left foot. Denies rash or itching. MUSCULOSKELETAL: Endorses left foot pain. Denies back pain, other joint pain, or myalgia. NEUROLOGIC: Endorses global weakness as well as weakness of the left leg. Denies headache, LOC, numbness, dizziness, or other focal weakness. PSYCHIATRIC: Denies anxiety or depression. <Fidel Medina PA-C - Last Filed: 01/18/23 03:41> [facility] Past Medical History Medical History: Medical History (Updated 01/18/23 @ 01:38 by Fidel Medina PA-C) Arthritis History of hypertension Obesity (BMI 30-39.9) Rotator cuff tendonitis Seasonal allergies <Fidel Medina PA-C - Last Filed: 01/18/23 03:41> Surgical History Surgical History: Surgical History H/O arthroscopic knee surgery bilateral H/O wrist surgery lt at least 13 surgeries that left wrist and is now fused History of total left knee replacement History of total right knee replacement History of tubal ligation Hx laparoscopic cholecystectomy <Fidel Medina PA-C - Last Filed: 01/18/23 03:41> Family History Family History: Family History (Rev
[2023-01-17] MEDS: ONDANSETRON INJ 4 MG/2 ML VIAL IV PUSH (23:38)
[2023-01-17] MEDS: MORPHINE SULFATE (*CRX) 4 MG/ML INJ IV PUSH (23:39)
[2023-01-17 23:40] LABS: Hematocrit 34.7 % (37.0-47.0); Hemoglobin 11.7 g/dL (12.0-15.0); Mean Corpuscular HGB Conc 33.7 g/dl (32-36); Mean Corpuscular Hemoglobin 31.2 pg (26-34); Mean Corpuscular Volume 92.5 fl (80-100); Mean Platelet Volume 10.9 fl (7.4-10.4); Platelet Count Result 222 k/mm3 (150-375); Red Blood Count 3.75 M/mm3 (4.2-5.4); Red Cell Distribution Width 14.9 % (11.5-14.5); White Blood Count 16.3 K/mm3 (4.5-10.0)
[2023-01-17 23:50] LABS: Alanine Aminotransferase 41 U/L (6-35); Albumin Level 3.4 g/dL (3.5-5.1); Alkaline Phosphatase 143 U/L (38-126); Anion Gap 10 mmol/L (8-16); Aspartate Amino Transferase 48 U/L (14-36); Bilirubin,Total 0.9 mg/dL (0.2-1.3); Blood Urea Nitrogen 106 mg/dL (7-17); Carbon Dioxide 22 mmol/L (22-30); Chloride 101 mmol/L (98-107); Estimated CRCL calculation 11 ml/min; Estimated Glomerular Filt Rate 6; Glucose 129 mg/dL (65-110); Potassium 3.9 mmol/L (3.4-5.0); Sodium 133 mmol/L (137-145)
[2023-01-17 23:55] LABS: Alanine Aminotransferase 42 U/L (6-35); Albumin Level 3.4 g/dL (3.5-5.1); Alkaline Phosphatase 145 U/L (38-126); Anion Gap 11 mmol/L (8-16); Aspartate Amino Transferase 48 U/L (14-36); Bilirubin,Total 0.9 mg/dL (0.2-1.3); Blood Urea Nitrogen 104 mg/dL (7-17); Carbon Dioxide 22 mmol/L (22-30); Chloride 101 mmol/L (98-107); Estimated CRCL calculation 11 ml/min; Estimated Glomerular Filt Rate 6; Glucose 130 mg/dL (65-110); Potassium 3.9 mmol/L (3.4-5.0); Sodium 134 mmol/L (137-145)
[2023-01-17 23:56] LABS: INR 1.2
[2023-01-17 23:57] LABS: Partial Thromboplastin Time 27.3 SECONDS (22.3-36.8)
[2023-01-18 00:35] LABS: Band Neutrophils Percent 8 % (0-6); Eosinophils Absolute Manual 0.16 K/mm3 (0.02-0.5); Eosinophils Percent Manual 1 % (0-4); Lymphocytes Absolute Manual 2.44 K/mm3 (1.1-4.5); Monocytes Absolute Manual 0.65 K/mm3 (0.1-0.90); Monocytes Percent Manual 4 % (3-9); Myelocytes Percent 1 %; Neutrophils Absolute Manual 12.87 K/mm3 (1.7-7.2); Neutrophils Percent Manual 71 % (46-73); Platelet Clumps Present; Platelet Estimate Adequate (Adequate); Total Cells Counted 100
[2023-01-18 00:36] LABS: Schistocytes None Seen (NORMAL); Smudge Cells PRESENT
[2023-01-18 00:39] LABS: Hypochromasia 1+ (NORMAL)
[2023-01-18] MEDS: CLINDAMYCIN 900 MG/D5W 50 ML 900 MG/50 ML PIGGYBACK 50 MG IVPB (00:45)
[2023-01-18 01:14] VITALS: TEMP 36.7
[2023-01-18 01:57] VITALS: BP 79/55; PULSE 104
[2023-01-18] MEDS: NOREPINEPHRINE 8 MG/D5W 250 ML 8 MG/250 ML BAG 9.38 MG IV CONT (01:57)
== END 2023-01-18 02:31 | disposition short-term general hospital (02) ==
PROVIDERS: General Practice; Emergency Provider Physician Assistant; PCP Nurse Practitioner Family
DX: A41.9 Sepsis, unspecified organism (principal); M72.6 Necrotizing fasciitis; R65.21 Severe sepsis with septic shock; M79.672 Pain in left foot; N17.9 Acute kidney failure, unspecified; I10 Essential (primary) hypertension; M19.90 Unspecified osteoarthritis, unspecified site; E66.9 Obesity, unspecified; Z68.38 Body mass index [BMI] 38.0-38.9, adult; Z96.653 Presence of artificial knee joint, bilateral; Z72.0 Tobacco use; Z79.84 Long term (current) use of oral hypoglycemic drugs; R00.0 Tachycardia, unspecified; R94.31 Abnormal electrocardiogram [ECG] [EKG]; R93.6 Abnormal findings on diagnostic imaging of limbs
CPT/HCPCS: 36415; 36556; 73590; 73620; 80053; 83605; 85025; 85610; 85730; 86140; 87040; 93005; 96365; 96367; 96368; 96375; 99285; C1751; J0743; J2270; J2405; J3370; J7030; J7050